=== PATIENT | female | born 2000 | race Caucasian/White ===

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

== ENCOUNTER 2022-05-29 20:56 | Emergency (ER) | payer BC ==
[2022-05-29] MEDS ORDERED: Ondansetron ODT 4 MG TAB ONE (21:13)
== END 2022-05-29 22:06 | disposition home or self-care (01) ==
LOC: NAV ERS 20:56
DX: A08.4 Viral intestinal infection, unspecified (principal)
CPT/HCPCS: 99283; Q0162

== ENCOUNTER 2022-10-23 10:42 | Emergency (ER) | payer BC | END 2022-10-23 12:00 | disposition home or self-care (01) | LOC: NAV ERS 10:42 | DX: J10.1 Influenza due to other identified influenza virus with other respiratory manifestations (principal) | CPT/HCPCS: 87081; 87430; 87804; 99283 ==